=== PATIENT | female | born 1940 | race Caucasian/White ===

== ENCOUNTER 2016-08-02 08:16 | Outpatient (CLI) | payer MEDICARE ==
--- NOTE | 2016-08-02 10:27 | DIAGNOSTIC IMAGING REPORT ---
PROCEDURE: XR SHOULDER 2 OR MORE VW-RIGHT INDICATION: FROZEN SHOULDER S/P R 05/2015 FRACTURE TECHNIQUE: Three views. COMPARISON: Shoulder films 06/13/2015 FINDINGS: Healed impacted transverse fracture of the surgical neck of the humerus with a displaced vertical fracture of the greater tuberosity (1 cm displaced). There is mild caudal subluxation of the humeral head. There are mild arthritic change of the acromion and right acromioclavicular joint. IMPRESSION: 1. Healed comminuted transverse and vertical fracture of the surgical neck and greater tuberosity of the right humerus.
--- NOTE | 2016-08-02 11:06 | DIAGNOSTIC IMAGING REPORT ---
PROCEDURE: MG BILATERAL SCREENING W/CAD INDICATION: Screening. Baseline. TECHNIQUE: Bilateral CC and MLO digital views. COMPARISON: None. FINDINGS: Computer-aided detection applied. Mildly dense parenchymal pattern. No evidence of mass or suspicious calcification. IMPRESSION: 1. Negative mammogram. RESULT CODE: 1- Negative. A. A negative report should not delay biopsy if a dominant or clinically suspicious mass is present. 10-15% of cancers are not identified by x-ray. B. A negative report may reinforce clinical impression. C. Adenosis and dense breasts may obscure an underlying neoplasm. D. False positive reports average 6-10%. E.. A yearly screening mammogram is recommended. A reminder letter will be scheduled.
== END 2016-08-02 23:00 ==
LOC: MAM SRH 08:16
DX: Z12.31 Encounter for screening mammogram for malignant neoplasm of breast (principal); S42.251S Displaced fracture of greater tuberosity of right humerus, sequela; S42.211S Unspecified displaced fracture of surgical neck of right humerus, sequela